=== PATIENT | female | born 2000 | race Two or more races ===

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

== ENCOUNTER 2019-02-01 16:09 | Emergency (ER) | payer SELFPAY ==
[2019-02-01 16:23] VITALS: BP 112/66
--- NOTE | 2019-02-01 17:39 | ER Document Report ---
ED Medical Screen (RME) - General Chief Complaint: Abdominal Pain Stated Complaint: ABDOMINAL PAIN Time Seen by Provider: 02/01/19 17:37 Mode of Arrival: Ambulatory Information source: Patient TRAVEL OUTSIDE OF THE [place] IN LAST 30 DAYS: No - HPI Patient complains to provider of: abd pain Onset: This morning - pt. with onset of RLQ abd pain earlier today - Related Data Allergies/Adverse Reactions: nickel Allergy (Verified 09/01/18 06:41) Past Medical History Pulmonary Medical History: Reports: Hx Asthma Renal/ Medical History: Denies: Hx Peritoneal Dialysis Past Surgical History: Reports: Hx Abdominal Surgery - repair hole in intestine as baby Physical Exam - Vital signs Vitals: Temp Pulse Resp BP Pulse Ox 98.8 F 117 H 20 112/66 99 02/01/19 16:21 02/01/19 16:21 02/01/19 16:21 02/01/19 16:21 02/01/19 16:21 Course - Vital Signs Vital signs: Temp Pulse Resp BP Pulse Ox 98.8 F 117 H 20 112/66 99 02/01/19 16:21 02/01/19 16:21 02/01/19 16:21 02/01/19 16:21 02/01/19 16:21
[2019-02-01 18:42] LABS: APPEARANCE,URINE SLIGHTLY-CLOUDY; BILIRUBIN,URINE NEGATIVE (NEGATIVE); COLOR,URINE YELLOW; GLUCOSE, URINE NEGATIVE (NEGATIVE); KETONES,URINE NEGATIVE (NEGATIVE); LEUKOCYTE ESTERASE,URINE SMALL (NEGATIVE); NITRITE,URINE NEGATIVE (NEGATIVE); PROTEIN,URINE NEGATIVE (NEGATIVE); URINE SPECIFIC GRAVITY 1.024; UROBILINOGEN,URINE NEGATIVE mg/dL (<2.0)
[2019-02-01 18:55] LABS: ABSOLUTE BASOPHILS # (AUTO) 0.1 10^3/uL (0.0-0.2); ABSOLUTE EOSINOPHILS # (AUTO) 0.5 10^3/uL (0.0-0.6); ABSOLUTE LYMPHOCYTES (AUTO) 2.1 10^3/uL (0.5-4.7); ABSOLUTE MONOCYTES (AUTO) 1.1 10^3/uL (0.1-1.4); BASOPHILS % (AUTO) 0.3 % (0-2); EOSINOPHILS % (AUTO) 2.6 % (0-6); HEMATOCRIT 36.8 % (36.0-47.0); LYMPHOCYTES % (AUTO) 11.7 % (13-45); MEAN CORPUSCULAR HEMOGLOBIN 27.1 pg (27.0-33.4); MEAN CORPUSCULAR HGB CONC 32.7 g/dL (32.0-36.0); MEAN CORPUSCULAR VOLUME 83 fl (80-97); MONOCYTES % (AUTO) 6.4 % (3-13); PLATELET COUNT 256 10^3/uL (150-450); RED BLOOD COUNT 4.44 10^6/uL (3.72-5.28); RED CELL DISTRIBUTION WIDTH 16.2 % (11.5-14.0); TOTAL CELLS COUNTED % (AUTO) 100 %; WHITE BLOOD COUNT 17.7 10^3/uL (4.0-10.5)
[2019-02-01 19:08] LABS: ALANINE AMINOTRANSFERASE 23 U/L (5-35); ALBUMIN 4.4 g/dL (3.7-5.6); ALKALINE PHOSPHATASE 56 U/L (50-135); ANION GAP 10 (5-19); ASPARTATE AMINO TRANSFERASE 18 U/L (5-30); BILIRUBIN,DIRECT 0.1 mg/dL (0.0-0.4); BILIRUBIN,TOTAL 0.2 mg/dL (0.2-1.3); BLOOD UREA NITROGEN 8 mg/dL (7-20); CALCIUM 9.5 mg/dL (8.4-10.2); CARBON DIOXIDE 22 mmol/L (22-30); CHLORIDE 109 mmol/L (98-107); GLUCOSE 96 mg/dL (75-110); POTASSIUM 3.9 mmol/L (3.6-5.0); SODIUM 140.9 mmol/L (137-145); TOTAL PROTEIN 7.4 g/dL (6.3-8.2)
--- NOTE | 2019-02-01 20:17 | RADIOLOGY REPORT (SQ) ---
EXAM DESCRIPTION: US TRANSVAGINAL COMPLETED DATE/TME: 02/01/2019 18:49 CLINICAL HISTORY: 18 years, Female, RLQ pain Findings: The uterus is anteverted and measures 8.0 x 4.0 x 4.8 cm. Endometrium is within normal limits. Maternal ovaries are within normal limits. No IUG is noted. No abnormal adnexal masses. Small amount of free fluid in the right adnexa. IMPRESSION: No abnormal adnexal masses and no IUG.
--- NOTE | 2019-02-01 22:15 | ER Document Report ---
ED General - General Chief Complaint: Abdominal Pain Stated Complaint: ABDOMINAL PAIN Time Seen by Provider: 02/01/19 17:37 Mode of Arrival: Ambulatory Notes: Patient is a 18-year-old female at unknown gestational age, presents complaining of some lower abdominal cramping more towards the right adnexal region that started earlier today and has now mostly resolved. Patient states that when it was present it was a mild, cramping, aching pain. Nothing was done to treat the pain but it has spontaneously resolved. No obvious worsening factor. Denies history of similar symptoms in the past. Was unaware that she was prior to coming to the hospital today. Denies vaginal bleeding or vaginal discharge. No dysuria. Has not seen her primary care physician regarding today's concerns. TRAVEL OUTSIDE OF THE [place] IN LAST 30 DAYS: No - Related Data Allergies/Adverse Reactions: nickel Allergy (Verified 09/01/18 06:41) Past Medical History - General Information source: Patient - Social History Smoking Status: Never Smoker Frequency of alcohol use: None Drug Abuse: None Lives with: Spouse/Significant other Family History: Reviewed & Not Pertinent Patient has suicidal ideation: No Patient has homicidal ideation: No Pulmonary Medical History: Reports: Hx Asthma Renal/ Medical History: Denies: Hx Peritoneal Dialysis Past Surgical History: Reports: Hx Abdominal Surgery - repair hole in intestine as baby Review of Systems - Review of Systems Notes: Constitutional: Negative for fever. HENT: Negative for sore throat. Eyes: Negative for visual changes. Cardiovascular: Negative for chest pain. Respiratory: Negative for shortness of breath. Gastrointestinal: Positive for abdominal pain Genitourinary: Negative for dysuria. Musculoskeletal: Negative for back pain. Skin: Negative for rash. Neurological: Negative for headaches, weakness or numbness. 10 point ROS negative except as marked above and in HPI. Physical Exam - Vital signs Vitals: Temp Pulse Resp BP Pulse Ox 98.8 F 117 H 20 112/66 99 02/01/19 16:21 02/01/19 16:21 02/01/19 16:21 02/01/19 16:21 02/01/19 16:21 Interpretation: Tachycardic - Resolved some of my assessment of the heart rate of 93 Notes: PHYSICAL EXAMINATION: GENERAL: Well-appearing, well-nourished and in no acute distress. HEAD: Atraumatic, normocephalic. EYES: Pupils equal round and reactive to light, extraocular movements intact, sclera anicteric, conjunctiva are normal. ENT: nares patent, oropharynx clear without exudates. Moist mucous membranes. NECK: Normal range of motion, supple without lymphadenopathy LUNGS: Breath sounds clear to auscultation bilaterally and equal. No wheezes rales or rhonchi. HEART: Regular rate and rhythm without murmurs ABDOMEN: Soft, nontender, normoactive bowel sounds. No guarding, no rebound. No masses appreciated. EXTREMITIES: Normal range of motion, no pitting or edema. No cyanosis. NEUROLOGICAL: No focal neurological deficits. Moves all extremities spontaneously and on command. PSYCH: Normal mood, normal affect. SKIN: Warm, Dry, normal turgor, no rashes or lesions noted. Course - Re-evaluation Re-evalutation: 02/01/19 22:13 Patient presents with a mild amount of lower abdominal pain now resolved in the setting of a first trimester . Patient states that she is only been sexually active once since her last mental cycle which was 2 weeks ago making the most probable date of conception within the past 2 weeks. Transvaginal ultrasound is unable to visualize an intrauterine at this time. Melo titative beta hCG below the zone of to margination. No active bleeding at time of presentation. Patient's abdominal exam is otherwise benign without any focal tenderness. I do not suspect an acute appendicitis, pyelonephritis, cystitis, or bowel obstruction. At this time I have informed the patient that she needs to return to the emergency department or the women's clinic in 48 hours for recheck of her quantitative beta hCG to assess whether or not this is a normal or a possible ectopic .At this time will discharge with return precautions and follow-up recommendations. Verbal discharge instructions given a the bedside and opportunity for questions given. Medication warnings reviewed. Patient is in agreement with this plan and has verbalized understanding of return precautions and the need for primary care follow-up in the next 24-72 hours. - Vital Signs Vital signs: Temp Pulse Resp BP Pulse Ox 98.8 F 117 H 20 112/66 99 02/01/19 16:21 02/01/19 16:21 02/01/19 16:21 02/01/19 16:21 02/01/19 16:21 - Laboratory Result Diagrams: 02/01/19 18:40 02/01/19 18:40 Laboratory results interpreted by me: 02/01/19 02/01/19 02/01/19 17:10 18:40 18:40 WBC 17.7 H RDW 16.2 H Seg Neutrophils % 79.0 H Lymphocytes % 11.7 L Absolute Neutrophils 14.0 H Chloride 109 H Beta HCG, Quant Ur Leukocyte Esterase SMALL H Urine HCG, Qual POSITIVE H 02/01/19 18:40 WBC RDW Seg Neutrophils % Lymphocytes % Absolute Neutrophils Chloride Beta HCG, Quant 677.37 H Ur Leukocyte Esterase Urine HCG, Qual - Diagnostic Test Radiology reviewed: Reports reviewed Discharge - Discharge Clinical Impression: Lower abdominal pain, of unknown anatomic location Condition: Good Disposition: HOME, SELF-CARE Additional Instructions: You need to return to the ED or the women's health clinic in 48 hours for a recheck of your hormone level. The ultrasound is unable to see a nything at this time because you are too early in your . We cannot definitively exclude an ectopic at this time. Please return if you develop severe abdominal pain, bleeding that goes through more than 2 pads for more than 2 hours, pass out, or have any other symptoms that are concerning to you. Please follow-up closely with your OBGYN regarding todays visit.
== END 2019-02-01 22:26 | disposition home or self-care (01) ==
LOC: ER 16:09
DX: O26.891 Other specified pregnancy related conditions, first trimester (principal); R10.30 Lower abdominal pain, unspecified; R10.2 Pelvic and perineal pain; R00.0 Tachycardia, unspecified; O99.511 Diseases of the respiratory system complicating pregnancy, first trimester; J45.909 Unspecified asthma, uncomplicated; Z3A.00 Weeks of gestation of pregnancy not specified
CPT/HCPCS: 36415; 76817; 80053; 81001; 81025; 84702; 85025; 93976; 99284

== ENCOUNTER 2019-04-14 23:12 | Emergency (ER) | payer MEDICAID ==
[2019-04-14 23:25] VITALS: BP 103/68
--- NOTE | 2019-04-14 23:46 | RADIOLOGY REPORT (SQ) ---
EXAM DESCRIPTION: XR FOREARM 2 VIEWS COMPLETED DATE/TME: 04/14/2019 00:00 CLINICAL HISTORY: 18 years, Female, injur COMPARISON: None. NUMBER OF VIEWS: Two TECHNIQUE: Frontal and lateral radiographs of the left forearm were obtained. LIMITATIONS: None. FINDINGS: Visualized osseous structures are normal in appearance. Joint spaces are well-maintained. No acute fracture or dislocation is evident. IMPRESSION: No acute osseous anomaly. copyright 2010 [employer]- All Rights Reserved
[2019-04-15] MEDS ORDERED: CEPHALEXIN 500 MG CAPSULE PO ONE (01:18)
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
[2019-04-15] MEDS ORDERED: DIPH/PERTUSS(ACELL)/TETANUS VAC/PF 0.5 ML SYR (>=10YO) IM ONE (02:01)
== END 2019-04-15 02:24 | disposition home or self-care (01) ==
LOC: ER 23:12
DX: S50.12XA Contusion of left forearm, initial encounter (principal); S40.812A Abrasion of left upper arm, initial encounter; W01.10XA Fall on same level from slipping, tripping and stumbling with subsequent striking against unspecified object, initial encounter; Y92.89 Other specified places as the place of occurrence of the external cause; Z23 Encounter for immunization
CPT/HCPCS: 90715; 99283

== ENCOUNTER 2020-09-20 18:55 | Emergency (ER) | payer MEDICAID ==
[2020-09-20 19:05] VITALS: BP 114/65
--- NOTE | 2020-09-20 19:42 | ER Document Report ---
ED Medical Screen (RME) - General Stated Complaint: ABDOMINAL PAIN, CHEST PAIN Time Seen by Provider: 09/20/20 19:31 TRAVEL OUTSIDE OF THE [place] IN LAST 30 DAYS: No - HPI Notes: 09/20/20 19:41 20-year-old female presents to the emergency room today for complaints of chest pain has been coming and going for the last couple of days, she is unsure if this is related to her anxiety. Patient is also complaining of abdominal pain that has been intermittent for the last couple of weeks. Patient also states that she says her last menstrual cycle was at the middle of June but then she states she did have a heavy flow in July, she is unsure if she is . Has not tried a home test. G2, P1. Denies any shortness of breath, nausea vomiting diarrhea. Patient is complaining that she has had chronic neuropathic pain but does not her primary care provider. Denies any fevers, chills. Denies any physical trauma. I have greeted and performed a rapid initial assessment of this patient. A comprehensive ED assessment and evaluation of the patient, analysis of test results and completion of the medical decision making process will be conducted by additional ED providers. PHYSICAL EXAMINATION: GENERAL: Well-appearing, well-nourished and in no acute distress. HEAD: Atraumatic, normocephalic. EYES: Pupils equal round extraocular movements intact, conjunctiva are normal. NECK: Normal range of motion CV: s1, s2 regular LUNGS: No respiratory distress Musculoskeletal: Normal range of motion NEUROLOGICAL: Normal speech, normal gait. SKIN: Warm, Dry, normal turgor, no rashes or lesions noted. - Related Data Allergies/Adverse Reactions: nickel Allergy (Verified 09/20/20 19:38) Past Medical History Pulmonary Medical History: Reports: Hx Asthma Renal/ Medical History: Denies: Hx Peritoneal Dialysis Past Surgical History: Reports: Hx Abdominal Surgery - repair hole in intestine as baby Physical Exam - Vital signs Vitals: Temp Pulse Resp BP Pulse Ox 98.2 F 91 16 114/65 98 09/20/20 19:04 09/20/20 19:04 09/20/20 19:04 09/20/20 19:04 09/20/20 19:04 Course - Vital Signs Vital signs: Temp Pulse Resp BP Pulse Ox 98.2 F 91 16 114/65 98 09/20/20 19:04 09/20/20 19:04 09/20/20 19:04 09/20/20 19:04 09/20/20 19:04
[2020-09-20 20:43] LABS: ABSOLUTE EOSINOPHILS # (AUTO) 0.6 10^3/uL (0.0-0.6); ABSOLUTE LYMPHOCYTES (AUTO) 2.6 10^3/uL (0.5-4.7); ABSOLUTE MONOCYTES (AUTO) 0.8 10^3/uL (0.1-1.4); ABSOLUTE NEUT (AUTO) 6.9 10^3/uL (1.7-8.2); BASOPHILS % (AUTO) 0.3 % (0-2); EOSINOPHILS % (AUTO) 5.6 % (0-6); HEMATOCRIT 36.7 % (36.0-47.0); HEMOGLOBIN 12.6 g/dL (12.0-15.5); LYMPHOCYTES % (AUTO) 23.6 % (13-45); MEAN CORPUSCULAR HEMOGLOBIN 30.8 pg (27.0-33.4); MEAN CORPUSCULAR HGB CONC 34.4 g/dL (32.0-36.0); MEAN CORPUSCULAR VOLUME 89 fl (80-97); MONOCYTES % (AUTO) 7.1 % (3-13); PLATELET COUNT 226 10^3/uL (150-450); RED BLOOD COUNT 4.11 10^6/uL (3.72-5.28); RED CELL DISTRIBUTION WIDTH 12.8 % (11.5-14.0); SEGMENTED NEUTROPHILS % (AUTO) 63.4 % (42-78); TOTAL CELLS COUNTED % (AUTO) 100 %; WHITE BLOOD COUNT 10.9 10^3/uL (4.0-10.5)
[2020-09-20 21:07] LABS: ALBUMIN 4.2 g/dL (3.5-5.0); ALKALINE PHOSPHATASE 38 U/L (38-126); ANION GAP 9 (5-19); ASPARTATE AMINO TRANSFERASE 23 U/L (14-36); BILIRUBIN,TOTAL 0.2 mg/dL (0.2-1.3); BLOOD UREA NITROGEN 15 mg/dL (7-20); CALCIUM 9.4 mg/dL (8.4-10.2); CARBON DIOXIDE 21 mmol/L (22-30); CHLORIDE 108 mmol/L (98-107); GLUCOSE 129 mg/dL (75-110); POTASSIUM 3.8 mmol/L (3.6-5.0); TOTAL PROTEIN 7.1 g/dL (6.3-8.2)
--- NOTE | 2020-09-21 07:28 | EKG REPORT ---
SEVERITY:- BORDERLINE ECG - SINUS RHYTHM PROBABLE LEFT ATRIAL ABNORMALITY BORDERLINE T ABNORMALITIES, DIFFUSE LEADS : Confirmed by: Og Esparza MD 21-Sep-2020 07:27:45
== END 2020-09-20 21:00 | disposition left against medical advice (07) ==
LOC: ER 18:55
DX: R07.9 Chest pain, unspecified (principal); R10.9 Unspecified abdominal pain; J45.909 Unspecified asthma, uncomplicated; Z91.048 Other nonmedicinal substance allergy status; Z53.20 Procedure and treatment not carried out because of patient's decision for unspecified reasons
CPT/HCPCS: 36415; 80053; 83690; 84484; 84702; 85025; 93005; 93010; 99281